=== PATIENT | female | born 1995 | race African-American/Black ===

== ENCOUNTER 2019-02-24 18:56 | Emergency (ER) | payer OTHER, SELFPAY ==
[2019-02-24] MEDS ORDERED: diphenhydrAMINE 25 MG CAP ONE (19:35)
== END 2019-02-24 19:37 | disposition home or self-care (01) ==
LOC: ERS 18:56
DX: L20.9 Atopic dermatitis, unspecified (principal)
CPT/HCPCS: 99282; Q0163